=== PATIENT | male | born 1990 | race Caucasian/White ===

== ENCOUNTER 2018-07-14 18:16 | Emergency (ER) | payer BC ==
[~2018-07-14 18:16] MED LIST: ACET-1966 PO; ACET-2146 PO; CLIN300C99 PO; HYDR473S9 PO; NAPR500T31 PO; PRED-1 PO; [UNRECOGNIZED DRUG - OTHER] PO
--- NOTE | 2018-07-14 18:26 | ER Report ---
History and Physical Time Seen By MD: 18:26 Hx. of Stated Complaint: patient had an accident whilst snowboarding earlier today. he is reporting left shoulder and left anteior chest wall pain HPI/ROS CHIEF COMPLAINT: fell snowboarding today HISTORY OF PRESENT ILLNESS: Patient is a 27 year old male presenting to the ED after falling while snowboarding. Patient was at [place] and caught his front edge. Patient then lost consciousness. Patient came too and he was on his back sliding down the mountain. Patient was wearing a helmet at the time. Patient also complaining of left shoulder pain. Also states the distant end of collarbone is painful. Patient able to move his left arm but states it is painful. Patient has point tenderness around the 4th rib. REVIEW OF SYSTEMS: General: Patient denies fever/chills, headaches or dizziness. Respiratory: No cough, no dyspnea. Is able to take a deep breath easily. Cardiovascular: No chest pain, no palpitations. Gastrointestinal: No nausea or vomiting, no abdominal pain. Musculoskeletal: No complaints of neck pain or back pain. Denies any numbness or tingling. Allergies: Coded Allergies: No Known Drug Allergies (Unverified , 03/28/14) Home Meds Active Scripts Ketorolac Tromethamine (KETOROLAC TROMETHAMINE) 10 Mg Tab, 10 MG PO Q6H, #20 TAB Prov:JOSUE RODRIGUEZ 07/14/18 Discontinued Reported Medications [homeopathy mercury] No Conflict Check, 4 TAB PO Q15MIN 03/28/14 Acetaminophen 500 Mg Tab (ACETAMINOPHEN EXTRA STRENGTH) 500 Mg Tablet, 1000 MG PO Q8H, TAB 03/28/14 Naproxen (NAPROXEN) 500 Mg Tablet, 500 MG PO BID, TAB 03/28/14 Discontinued Scripts Hydrocodone/Acetaminophen 10/300 MG/15 ML (Lortab 10 mg-300 mg/15 ml Elxr) 473 Ml Solution, 10 ML PO Q6H, #240 ML 10 mL every 6 hours as needed for severe pain. Prov:JOSSE WEAVER NP 03/28/14 Prednisone 10 Mg Tab (PREDNISONE 10 MG TAB) 10 Mg Tablet, 10 MG PO BID, #35 TAB 2 BID x5, 1 BID x5, 1 QDay X5 Prov:JOSSE WEAVER NP 03/28/14 Clindamycin Hcl (CLINDAMYCIN HCL) 300 Mg Capsule, 300 MG PO TID, #30 CAPSULE TAKE 1 CAPSULE 3 TIMES A DAY Prov:JOSSE WEAVER ESL TUTOR 03/28/14 Past Medical/Surgical History Patient denies any medical history. Patient has a past surgical history of repair of facial trauma and left ankle. Reviewed Nurses Notes: Yes Hx Smoking: Yes Smoking Status: Former Smoker Hx Substance Use Disorder: No Hx Alcohol Use: No Constitutional Vital Sign - Last 24 Hours 07/14/18 07/14/18 07/14/18 07/14/18 18:19 18:21 18:46 19:16 Temp 98.8 Pulse 104 95 83 Resp 24 B/P (MAP) 153/95 (114) 153/95 Pulse Ox 93 91 90 O2 Delivery Room Air 07/14/18 07/14/18 19:21 19:49 Pulse 91 B/P (MAP) 133/85 (101) Pulse Ox 92 Physical Exam General Appearance: The patient is alert, has no immediate need for airway protection and no current signs of toxicity. Eyes: Pupils equal and round no injection. Respiratory: Chest is non tender, lungs are clear to auscultation. Cardiac: regular rate and rhythm Gastrointestinal: Abdomen is soft and non tender, no masses, bowel sounds normal. Musculoskeletal: Neck: Neck is supple and non tender. Extremities have full range of motion. Left shoulder is tender with movement. Point tenderness noted around the 4th intercostal space left of the sternum. Skin: No rashes or lesions. 3 cm abrasion below left cheekbone. Neuro: Patient oriented x 4. Movement and strength equal and bilateral. Sensation intact bilaterally. DIFFERENTIAL DIAGNOSIS: After history and physical exam differential diagnosis was considered for contusion, concussion, fracture clavicle, Medical Decision Making EKG/Imaging Imaging EXAMINATION: CT cervical spine without IV contrast HISTORY: Fall with LOC snowboarding TECHNIQUE: Thin axial CT images of the cervical spine were obtained without IV contrast, with sagittal and coronal 2D reconstructed images. One of the following dose optimization techniques was utilized in the performance of this exam: Automated exposure control; adjustment of the mA and/or kV according to the patient's size; or use of an iterative kwasi nstruction technique. Specific details can be referenced in the facility's radiology CT exam operational policy. COMPARISON: None. FINDINGS: The cervical spine is negative for acute fracture or subluxation. Normal alignment. Vertebral body height and disc spaces are preserved. The dens is intact. The craniocervical junction demonstrates normal alignment. IMPRESSION: Negative cervical spine CT. Report Dictated By: Marcus Pack MD at 07/14/2018 7:20 PM Report E-Signed By: Marcus Pack MD at 07/14/2018 7:24 PM Exam type: CHEST PA LAT History: snowboarding accident Comparison: None. Findings: Both lungs are well-expanded and clear. There is no focal consolidation, pleural effusion or pneumothorax. Heart size is normal. The osseous structures are unremarkable. IMPRESSION: 1. No acute cardiopulmonary disease. Report Dictated By: Daniel Mills MD at 07/14/2018 7:20 PM Report E-Signed By: Daniel Mills MD at 07/14/2018 7:21 PM EXAMINATION: Left shoulder 3 views. Left clavicle 2 views HISTORY: Snowboarding accident. COMPARISON: None FINDINGS: No evidence of acute fracture or dislocation about the left shoulder. Normal alignment at the glenohumeral and acromioclavicular joints. The subacromial space is preserved. Visualized upper left ribs appear intact. The left clavicle appears radiographically intact on the dedicated clavicle views. No evidence of a clavicular fracture. Normal alignment at the acromioclavicular joint. IMPRESSION: 1. Negative left shoulder. 2. Negative left clavicle. Report Dictated By: Marcus Pack MD at 07/14/2018 7:24 PM Report E-Signed By: Marcus Pack MD at 07/14/2018 7:26 PM EXAMINATION: CT head without IV contrast HISTORY: Fall with LOC snowboarding TECHNIQUE: Axial CT images of the head were obtained from the vertex to the skull base without IV contrast, with coronal and sagittal 2D reconstructed images. One of the following dose optimization techniques was utilized in the performance of this exam: Automated exposure control; adjustment of the mA and/or kV according to the patient's size; or use of an iterative reconstruction technique. Specific details can be referenced in the facility's radiology CT exam operational policy. COMPARISON: None. FINDINGS: There is a lobular region of CSF attenuation overlying the left frontal lobe measuring approximately 3.1 x 1.4 cm compatible with an arachnoid cyst. There is some benign overlying cortical thinning and scalloping of the frontal bone. The intracranial contents are otherwise unremarkable. No evidence of intracranial hemorrhage or mass effect. No midline shift. The basal cisterns are patent. Maciel-white differentiation is maintained. The calvarium is intact. The visualized paranasal sinuses and mastoid air cells are unopacified. IMPRESSION: 1. No CT evidence of acute intracranial pathology. 2. Localized pocket of CSF attenuation fluid overlying the left frontal lobe compatible with an arachnoid cyst, with some overlying chronic scalloping of the frontal bone. Report Dictated By: Marcus Pack MD at 07/14/2018 7:12 PM Report E-Signed By: Marcus Pack MD at 07/14/2018 7:20 PM EXAMINATION: Left rib views HISTORY: Snowboarding accident. COMPARISON: None. FINDINGS: The left-sided ribs appear radiographically intact. No discrete rib fracture is visualized. No left-sided pleural effusion or pneumothorax. The visualized lungs are clear. Normal cardiomediastinal silhouette. IMPRESSION: Negative left rib views. Report Dictated By: Marcus Pack MD at 07/14/2018 7:26 PM Report E-Signed By: Marcus Pack MD at 07/14/2018 7:28 PM ED Course/Re-evaluation ED Course Patient was admitted to the room and placed in a bed. History and physical were obtained. Differential diagnoses were considered. CT scan of head and neck were negative except for an arachnoid cyst noted by the radiologist. All x-rays of the clavicle, shoulder, ribs, and chest did not demonstrate any fractures. Results were discussed with the patient. Concussion instructions were given to the patient. Patient verbalized understanding. Patient discharged to home. Decision to Disposition Date: Jul 14, 2018 Decision to Disposition Time: 19:39 Depart Departure Latest Vital Signs Vital Signs Date Time Temp Pulse Resp B/P (MAP) Pulse Ox O2 Delivery O2 Flow Rate FiO2 07/14/18 19:49 133/85 (101) 07/14/18 19:21 91 92 07/14/18 18:21 98.8 24 Room Air Impression: Primary Impression: Concussion Additional Impressions: Shoulder contusion Chest wall contusion Condition: Improved Disposition: HOME OR SELF-CARE New Scripts Ketorolac Tromethamine (KETOROLAC TROMETHAMINE) 10 Mg Tab 10 MG PO Q6H, #20 TAB Prov: JENNIFERJOSUE CAMILLE 07/14/18 Patient Instructions: Concussion (ED), Contusion in Adults (ED) Additional Instructions: Get plenty of rest. Limit activity by pain. Limit TV and computer time. Monitor for confusion, increased irritability, uncontrollable vomiting, worsening headache or difficulty to arouse. Return to the ER if those are to occur. Follow up with your primary care provider in the next week. Ice shoulder and chest to 3 times a day for 10-15 minutes. No ibuprofen, Motrin, Aleve, naproxen, Advil while taking the prescription. Problem Qualifiers Primary Impression: Concussion Encounter type: initial encounter Loss of consciousness presence/duration: with LOC of 30 min or less Qualified Codes: S06.0X1A - Concussion with loss of consciousness of 30 minutes or less, initial encounter Additional Impressions: Shoulder contusion Encounter type: initial encounter Laterality: left Qualified Codes: S40.012A - Contusion of left shoulder, initial encounter Chest wall contusion Encounter type: initial encounter Laterality: left Qualified Codes: S20.212A - Contusion of left front wall of thorax, initial encounter JOSUE RODRIGUEZ LANDSCAPE SUPERVISOR Jul 14, 2018 18:26
[2018-07-14] MEDS ORDERED: KETOROLAC TROM 10MG TAB PO ONE (18:50)
--- NOTE | 2018-07-14 19:24 | RADIOLOGY IMAGING REPORT ---
FACILITY: [facility] - [place], [place] PATIENT NAME: Long Galarza : 1990 MR: [id number] V: [id number] EXAM DATE: ORDERING PHYSICIAN: JOSUE RODRIGUEZ TECHNOLOGIST: Location: [facility] - [place] Patient: Long Galarza : 1990 Visit/Account:[id number] Date of Sevice: 07/14/2018 EXAMINATION: CT head without IV contrast HISTORY: Fall with LOC snowboarding TECHNIQUE: Axial CT images of the head were obtained from the vertex to the skull base without IV c ontrast, with coronal and sagittal 2D reconstructed images. One of the following dose optimization techniques was utilized in the performance of this exam: Autom ated exposure control; adjustment of the mA and/or kV according to the patient's size; or use of an i terative reconstruction technique. Specific details can be referenced in the facility's radiology C T exam operational policy. COMPARISON: None. FINDINGS: There is a lobular region of CSF attenuation overlying the left frontal lobe measuring approximately 3.1 x 1.4 cm compatible with an arachnoid cyst. There is some benign overlying cortical thinning and scalloping of the frontal bone. The intracranial contents are otherwise unremarkable. No evidence of intracranial hemorrhage or mass effect. No midline shift. The basal cisterns are patent. Maciel-white differentiation is maintained. The calvarium is intact. The visualized paranasal sinuses and mastoid air cells are unopacified. IMPRESSION: 1. No CT evidence of acute intracranial pathology. 2. Localized pocket of CSF attenuation fluid overlying the left frontal lobe compatible with an arach noid cyst, with some overlying chronic scalloping of the frontal bone. Report Dictated By: Marcus Pack MD at 07/14/2018 7:12 PM Report E-Signed By: Marcus Pack MD at 07/14/2018 7:20 PM WSN:[id number]
--- NOTE | 2018-07-14 19:25 | RADIOLOGY IMAGING REPORT ---
FACILITY: [facility] - [place] PATIENT NAME: Long Galarza : 1990 MR: [id number] V: [id number] EXAM DATE: ORDERING PHYSICIAN: JOSUE RODRIGUEZ TECHNOLOGIST: [place] [facility] [place] Patient: Long Galarza : 1990 Visit/Account:[id number] Date of Sevice: 07/14/2018 Exam type: CHEST PA LAT History: snowboarding accident Comparison: None. Findings: Both lungs are well-expanded and clear. There is no focal consolidation, pleural effusion or pneumot horax. Heart size is normal. The osseous structures are unremarkable. IMPRESSION: 1. No acute cardiopulmonary disease. Report Dictated By: Daniel Mills MD at 07/14/2018 7:20 PM Report E-Signed By: Daniel Mills MD at 07/14/2018 7:21 PM WSN:[id number]
--- NOTE | 2018-07-14 19:28 | RADIOLOGY IMAGING REPORT ---
FACILITY: [facility] PATIENT NAME: Long Galarza : 1990 MR: [id number] V: [id number] EXAM DATE: ORDERING PHYSICIAN: JOSUE RODRIGUEZ TECHNOLOGIST: Location: [facility] - [place] Patient: Long Galarza : 1990 Visit/Account:[id number] Date of Sevice: 07/14/2018 EXAMINATION: CT cervical spine without IV contrast HISTORY: Fall with LOC snowboarding TECHNIQUE: Thin axial CT images of the cervical spine were obtained without IV contrast, with sagit rebel and coronal 2D reconstructed images. One of the following dose optimization techniques was utilized in the performance of this exam: Autom ated exposure control; adjustment of the mA and/or kV according to the patient's size; or use of an i terative reconstruction technique. Specific details can be referenced in the facility's radiology C T exam operational policy. COMPARISON: None. FINDINGS: The cervical spine is negative for acute fracture or subluxation. Normal alignment. Vertebral body height and disc spaces are preserved. The dens is intact. The craniocervical junction demonstrates normal alignment. IMPRESSION: Negative cervical spine CT. Report Dictated By: Marcus Pack MD at 07/14/2018 7:20 PM Report E-Signed By: Marcus Pack MD at 07/14/2018 7:24 PM WSN:[id number]
--- NOTE | 2018-07-14 19:29 | RADIOLOGY IMAGING REPORT ---
[place] [facility] [place] Long Galarza : 1990 MR: [id number] V: [id number] EXAM DATE: ORDERING PHYSICIAN: JOSUE RODRIGUEZ TECHNOLOGIST: Location: [facility] - [place] Patient: Long Galarza : 1990 Visit/Account:[id number] Date of Sevice: 07/14/2018 EXAMINATION: Left shoulder 3 views. Left clavicle 2 views HISTORY: Snowboarding accident. COMPARISON: None FINDINGS: No evidence of acute fracture or dislocation about the left shoulder. Normal alignment at the glenohu meral and acromioclavicular joints. The subacromial space is preserved. Visualized upper left ribs ap pear intact. The left clavicle appears radiographically intact on the dedicated clavicle views. No evidence of a c lavicular fracture. Normal alignment at the acromioclavicular joint. IMPRESSION: 1. Negative left shoulder. 2. Negative left clavicle. Report Dictated By: Marcus Pack MD at 07/14/2018 7:24 PM Report E-Signed By: Marcus Pack MD at 07/14/2018 7:26 PM WSN:[id number]
--- NOTE | 2018-07-14 19:30 | RADIOLOGY IMAGING REPORT ---
FACILITY: [facility] PATIENT NAME: Long Galarza : 1990 MR: [id number] V: [id number] EXAM DATE: ORDERING PHYSICIAN: JOSUE RODRIGUEZ TECHNOLOGIST: Location: [facility] Patient: Long Galarza : 1990 Visit/Account:[id number] Date of Sevice: 07/14/2018 EXAMINATION: Left shoulder 3 views. Left clavicle 2 views HISTORY: Snowboarding accident. COMPARISON: None FINDINGS: No evidence of acute fracture or dislocation about the left shoulder. Normal alignment at the glenohu meral and acromioclavicular joints. The subacromial space is preserved. Visualized upper left ribs ap pear intact. The left clavicle appears radiographically intact on the dedicated clavicle views. No evidence of a c lavicular fracture. Normal alignment at the acromioclavicular joint. IMPRESSION: 1. Negative left shoulder. 2. Negative left clavicle. Report Dictated By: Marcus Pack MD at 07/14/2018 7:24 PM Report E-Signed By: Marcus Pack MD at 07/14/2018 7:26 PM WSN:[id number]
--- NOTE | 2018-07-14 19:32 | RADIOLOGY IMAGING REPORT ---
FACILITY: [facility] PATIENT NAME: Long Galarza : 1990 MR: [id number] V: [id number] EXAM DATE: ORDERING PHYSICIAN: JOSUE RODRIGUEZ TECHNOLOGIST: Location: [facility] - [place] Patient: Long Galarza : 1990 Visit/Account:[id number] Date of Sevice: 07/14/2018 EXAMINATION: Left rib views HISTORY: Snowboarding accident. COMPARISON: None. FINDINGS: The left-sided ribs appear radiographically intact. No discrete rib fracture is visualized. No left-sided pleural effusion or pneumothorax. The visualized lungs are clear. Normal cardiomediasti nal silhouette. IMPRESSION: Negative left rib views. Report Dictated By: Marcus Pack MD at 07/14/2018 7:26 PM Report E-Signed By: Marcus Pack MD at 07/14/2018 7:28 PM WSN:[id number]
[2018-07-14] MEDS ORDERED: KET10 PO (19:38)
[2018-07-14] MEDS ORDERED: KETOROLAC TROM 10 MG TAB TH PO ONE (19:40)
[2018-07-14 19:49] VITALS: BP 133/85
== END 2018-07-14 19:53 | disposition home or self-care (01) ==
LOC: ER 18:23
DX: S06.0X1A Concussion with loss of consciousness of 30 minutes or less, initial encounter (principal); S40.012A Contusion of left shoulder, initial encounter; S20.212A Contusion of left front wall of thorax, initial encounter; W18.39XA Other fall on same level, initial encounter; Y93.23 Activity, snow (alpine) (downhill) skiing, snowboarding, sledding, tobogganing and snow tubing
CPT/HCPCS: 70450; 71046; 71100; 72125; 99284